=== PATIENT | male | born 1995 | race Caucasian/White ===

== ENCOUNTER 2020-09-03 12:58 | Inpatient (IN) | payer SELFPAY ==
[2020-09-03 13:07] VITALS: BP 112/76; PULSE 73; RESP 15; TEMP 36.7; O2SAT 100; BMI 20.5
--- NOTE | 2020-09-03 13:19 | ED_ITS ---
HPI - Psych General: Chief Complaint: Psychiatric Symptoms Stated Complaint: SI Time Seen by Provider: 09/03/20 13:05 History of Present Illness: HPI Narrative: 24-year-old male presents with suicidal ideation. Patient reports that he has had suicidal thoughts for quite a while. Patient reports being on for least a year. Patient admits that he gets worse with substance abuse. Patient states that sometimes he feels like he wants to hurt people. Patient mom reports that he get violent. Patient reports that he needs help and does not want to elaborate because it will make him cry. Patient feels that he needs a be hospitalized to help with his current condition. Associated symptoms: Reports depression, homicidal ideation and suicidal ideation Review of Systems Const: Denies: fever(s) or chills Eyes: Denies: change in vision ENMT: Denies: throat pain Card: Denies: chest pain or palpitations Resp: Denies: dyspnea or productive cough GI: Denies: abdominal pain, nausea or vomiting : Denies: flank pain Musc: Denies: neck pain or back pain Skin/Breast: Denies: rash Neuro: Denies: headache(s) Psych: Reports: depression, hopelessness, suicidal ideation and homicidal ideation PFS ED PFSH: Social History Smoking and tobacco status: current every day smoker cigarettes Packs smoked per day: 0.25 Alcohol intake: current Alcohol intake frequency: few times a week Substance/Drug Use: current Substance/Drug use frequency: daily Substance/Drug use type: Marijuana, Amphetamines and Methamphetamine Physical Exam Const: COMMON NORMALS: no acute distress, patient oriented x3 and healthy appearing HENMT: COMMON NORMALS: normocephalic and atraumatic HEAD & SCALP: normocephalic and atraumatic Eye: GENERAL EYE: appearance normal, both eyes and all related structures Neck/C-Spine: COMMON NORMALS: full ROM GENERAL: Yes normal visual inspection Resp: COMMON NORMALS: normal respiratory effort, No use of accessory muscles and clear to auscultation bilaterally AUSCULTATION: clear to auscultation bilaterally Cardio: COMMON NORMALS: regular rate and regular rhythm RATE: regular rate RHYTHM: regular rhythm GI: COMMON NORMALS: Normal to inspection, nondistended, normoactive bowel sounds present Extremity: COMMON NORMALS: normal to inspection and full ROM Neuro: COMMON NORMALS: patient oriented x3, moves all extremities and no focal motor deficits Psych: COMMON NORMALS: mental status grossly normal and Normal thought process present THOUGHT PROCESS: Normal thought process present Skin: COMMON NORMALS: no rashes or lesions noted GENERAL SKIN EXAM: no rashes or lesions noted Course Vital Signs: Vital signs: Vital Signs Temperature 97.9 F 09/03/20 16:00 Pulse Rate 63 09/03/20 16:00 Respiratory Rate 17 09/03/20 16:00 Blood Pressure 111/56 09/03/20 16:00 Pulse Oximetry 96 09/03/20 16:00 MDM - Psych MDM Narrative: Medical decision making narrative: Patient to be admitted for inpatient psychiatry treatment. Patient is voluntary and stable. Lab Data: Attestation: I reviewed the patient's lab results. Labs: Lab Results 09/03/20 09/03/20 09/03/20 Range/Units 13:20 13:20 13:55 WBC 6.3 (4.0-10.0) 10^3/ uL RBC 3.94 L (4.1-5.3) 10^6/u L Hgb 12.1 (11.7-16.6) g/dL Hct 36.4 L (42.0-52.0) % MCV 92.4 (80-94) fL MCH 30.7 (28.0-34.0) pg MCHC 33.2 (30.0-36.0) g/dL RDW 12.7 (12.1-15.1) % Plt Count 149 (130-400) 10^3/c mm MPV 10.3 (7.4-10.4) fL Neut % (Auto) 58.9 % Lymph % (Auto) 29.2 % [place] % (Auto) 8.5 % Eos % (Auto) 2.2 % Baso % (Auto) 0.6 % Neut # (Auto) 3.73 (1.8-7.7) 10^3/u L Lymph # (Auto) 1.9 (0.8-4.8) 10^3/u L [place] # (Auto) 0.5 (0.2-0.9) 10^3/u L Eos # (Auto) 0.1 (0.0-0.8) 10^3/u L Baso # (Auto) 0.0 (0.0-0.1) 10^3/u L Nucleated RBC % (a uto) 0 % Nucleated RBCs # 0.0 /100WBC Sodium 141 (136-145) mmol/L Potassium 4.1 (3.5-5.1) mmol/L Chloride 106 (98-107) mmol/L Carbon Dioxide 26 (22-29) mmol/L Anion Gap 13.1 (5-19) BUN 6 (6-20) mg/dL Creatinine 0.7 (0.7-1.2) mg/dL GFR Calculation 139.8 H (90-130) mL/min Glucose 95 (65-115) mg/dL Calculated Osmolal ity 289 (285-295) mOsm/k g Calcium 8.6 (8.5-10.5) mg/dL Total Bilirubin 0.2 (0.15-1.2) mg/dL AST 13 (0-40) U/L ALT 11 (0-41) U/L Alkaline Phosphata se 66 (40-130) IU/L Total Protein 6.3 L (6.6-8.7) g/dL Albumin 4.1 (3.5-5.2) g/dL Globulin 2.2 (1.3-4.6) g/dL Urine Color Straw (Yellow) Urine Appearance Clear (CLEAR) Urine pH 5 (5-7) Ur Specific Gravit y 1.010 (1.005-1.030) Urine Protein Neg (Negative) Urine Glucose (UA) Norm (Normal) Urine Ketones Negative (Negative) Urine Blood Neg (Negative) Urine Nitrate Negative (Negative) Urine Bilirubin Neg (Negative) Urine Urobilinogen Norm (Negative) mg/dL Ur Leukocyte Marie ase Negative (Negative) Salicylates < 0.3 L (3-10) mg/dL Urine Opiates Scre en (Negative) ng/mL Acetaminophen < 5.0 L (10-30) ug/mL Ur Barbiturates Sc reen (Negative) ng/mL Ur Phencyclidine S crn (Negative) ng/mL Ur Amphetamines Sc reen (Negative) ng/mL U Benzodiazepines Scrn (Negative) ng/mL Urine Cocaine Scre en (Negative) ng/mL U Marijuana (THC) Screen (Negative) ng/mL Ethyl Alcohol < 10 (0-10) mg/dL 09/03/20 Range/Units 13:55 WBC (4.0-10.0) 10^3/ uL RBC (4.1-5.3) 10^6/u L Hgb (11.7-16.6) g/dL Hct (42.0-52.0) % MCV (80-94) fL MCH (28.0-34.0) pg MCHC (30.0-36.0) g/dL RDW (12.1-15.1) % Plt Count (130-400) 10^3/c mm MPV (7.4-10.4) fL Neut % (Auto) % Lymph % (Auto) % [place] % (Auto) % Eos % (Auto) % Baso % (Auto) % Neut # (Auto) (1.8-7.7) 10^3/u L Lymph # (Auto) (0.8-4.8) 10^3/u L [place] # (Auto) (0.2-0.9) 10^3/u L Eos # (Auto) (0.0-0.8) 10^3/u L Baso # (Auto) (0.0-0.1) 10^3/u L Nucleated RBC % (a uto) % Nucleated RBCs # /100WBC Sodium (136-145) mmol/L Potassium (3.5-5.1) mmol/L Chloride (98-107) mmol/L Carbon Dioxide (22-29) mmol/L Anion Gap (5-19) BUN (6-20) mg/dL Creatinine (0.7-1.2) mg/dL GFR Calculation (90-130) mL/min Glucose (65-115) mg/dL Calculated Osmolal ity (285-295) mOsm/k g Calcium (8.5-10.5) mg/dL Total Bilirubin (0.15-1.2) mg/dL AST (0-40) U/L ALT (0-41) U/L Alkaline Phosphata se (40-130) IU/L Total Protein (6.6-8.7) g/dL Albumin (3.5-5.2) g/dL Globulin (1.3-4.6) g/dL Urine Color (Yellow) Urine Appearance (CLEAR) Urine pH (5-7) Ur Specific Gravit y (1.005-1.030) Urine Protein (Negative) Urine Glucose (UA) (Normal) Urine Ketones (Negative) Urine Blood (Negative) Urine Nitrate (Negative) Urine Bilirubin (Negative) Urine Urobilinogen (Negative) mg/dL Ur Leukocyte Marie ase (Negative) Salicylates (3-10) mg/dL Urine Opiates Scre en Negative (Negative) ng/mL Acetaminophen (10-30) ug/mL Ur Barbiturates Sc reen Negative (Negative) ng/mL Ur Phencyclidine S crn Negative (Negative) ng/mL Ur Amphetamines Sc reen Negative (Negative) ng/mL U Benzodiazepines Scrn Negative (Negative) ng/mL Urine Cocaine Scre en Negative (Negative) ng/mL U Marijuana (THC) Screen Positive H (Negative) ng/mL Ethyl Alcohol (0-10) mg/dL Discharge Plan Discharge Patient Disposition: Admitted As Inpatient Admit Provider: Dakota Beasley Clinical Impression: Suicidal ideation Depression Qualifiers: Depression Type: unspecified Qualified Code(s): F32.9 - Major depressive disorder, single episode, unspecified Condition: Stable Discharge Diet: Usual diet Discharge Activity: Resume usual activity Coding Level of Care Code ED Decision Analyst for Monalisa Fwd Exam Comprehensive
[2020-09-03 13:35] LABS: Basophils % 0.6 %; Eosinophils # 0.1 10^3/uL (0.0-0.8); Eosinophils % 2.2 %; Hematocrit 36.4 % (42.0-52.0); Hemoglobin 12.1 g/dL (11.7-16.6); Lymphocytes # 1.9 10^3/uL (0.8-4.8); Lymphocytes % 29.2 %; Mean Corpuscular HGB Conc 33.2 g/dL (30.0-36.0); Mean Corpuscular Hemoglobin 30.7 pg (28.0-34.0); Mean Corpuscular Volume 92.4 fL (80-94); Mean Platelet Volume 10.3 fL (7.4-10.4); Monocytes # 0.5 10^3/uL (0.2-0.9); Monocytes % 8.5 %; Neutrophils # 3.73 10^3/uL (1.8-7.7); Neutrophils % 58.9 %; Nucleated Red Blood Cells % 0 %; Platelet Count 149 10^3/cmm (130-400); Red Blood Count 3.94 10^6/uL (4.1-5.3); Red Cell Distribution Width 12.7 % (12.1-15.1); White Blood Count 6.3 10^3/uL (4.0-10.0)
[2020-09-03 13:51] LABS: Alanine Aminotransferase 11 U/L (0-41); Albumin Level 4.1 g/dL (3.5-5.2); Alkaline Phosphatase 66 IU/L (40-130); Anion Gap 13.1 (5-19); Aspartate Amino Transferase 13 U/L (0-40); Blood Urea Nitrogen 6 mg/dL (6-20); Calcium 8.6 mg/dL (8.5-10.5); Carbon Dioxide 26 mmol/L (22-29); Chloride 106 mmol/L (98-107); Creatinine Clr Calc Pharmacy 152.1325; Globulin 2.2 g/dL (1.3-4.6); Glomerular Filtration Rate 139.8 mL/min (90-130); Glucose 95 mg/dL (65-115); Osmolality Calculated 289 mOsm/kg (285-295); Potassium 4.1 mmol/L (3.5-5.1); Sodium 141 mmol/L (136-145); Total Bilirubin 0.2 mg/dL (0.15-1.2); Total Protein 6.3 g/dL (6.6-8.7)
[2020-09-03 14:00] LABS: Add Urine Microscopic? NO; Charge for UA Resulting for Rev
[2020-09-03 14:05] LABS: Acetaminophen < 5.0 ug/mL (10-30); Salicylate < 0.3 mg/dL (3-10)
[2020-09-03 14:05] LABS: Bilirubin Urine Neg (Negative); Blood Urine Neg (Negative); Glucose Urine UA Norm (Normal); Ketones Urine Negative (Negative); Leukocyte Esterase Urine Negative (Negative); Nitrate Urine Negative (Negative); Protein Urine Neg (Negative); Urine Appearance Clear (CLEAR); Urine Color Straw (Yellow); Urobilinogen Urine Norm (Negative); pH Urine 5 (5-7)
[2020-09-03 14:39] LABS: Amphetamines Screen Urine Negative (Negative); Barbiturates Screen Urine Negative (Negative); Benzodiazepines Screen Urine Negative (Negative); Cocaine Screen Urine Negative (Negative); Opiate Screen Urine Negative (Negative); PCP Screen Urine Negative (Negative); THC Screen Urine Positive (Negative)
--- NOTE | 2020-09-03 15:29 | PC.NURSE ---
pt report called to Bella TODD in SBAR format.
[2020-09-03 15:40] LABS: Alcohol Level < 10 mg/dL (0-10)
[2020-09-03 16:00] VITALS: BP 111/56; PULSE 63; RESP 17; TEMP 36.6; O2SAT 96
[2020-09-03 16:38] VITALS: RESP 17
[2020-09-03] MEDS: nicotine 2 mg Gum BUCCAL (18:30)
[2020-09-03 19:53] VITALS: BP 112/67; PULSE 68; RESP 15; TEMP 36.9; O2SAT 98
[2020-09-04 06:00] VITALS: BP 105/69; PULSE 74; RESP 18; TEMP 36.8; O2SAT 98
[2020-09-04] MEDS: nicotine 2 mg Gum BUCCAL ×2 (10:38→18:32)
--- NOTE | 2020-09-04 12:54 | PM.NHP ---
Providers/Chief Complaint Admitting Physician: Dakota Beasley DO Chief Complaint: SI HPI NPU History of Present Illness Jan Drummond is a 24 year old male who presented to the emergency department with the following report: Chief Complaint: Psychiatric Symptoms Stated Complaint: SI Time Seen by Provider: 09/03/20 13:05 History of Present Illness: HPI Narrative: 24-year-old male presents with suicidal ideation. Patient reports that he has had suicidal thoughts for quite a while. Patient reports being on for least a year. Patient admits that he gets worse with substance abuse. Patient states that sometimes he feels like he wants to hurt people. Patient mom reports that he get violent. Patient reports that he needs help and does not want to elaborate because it will make him cry. Patient feels that he needs a be hospitalized to help with his current condition. Associated symptoms: Reports depression, homicidal ideation and suicidal ideation. He was admitted to the neuropsychiatric unit for definitive treatment of those issues. He presents today reporting he is never had psychiatric treatment, he is never been hospitalized or had any other psychiatric medications. He denies any suicide attempts but does endorse suicidal thoughts that have been problematic recently endorses having depression feelings of helplessness and hopelessness and worthlessness. He reports smoking cigarettes were a pack will last him 2 to 3 days. Reports being alcohol occasionally, marijuana is smoked daily, he denies using cocaine but reports opiate use occasionally and methamphetamine use sometimes daily. When asked about rehab he reports not yet. He denies ever having a DUI. He was very evasive in general with answers to the questions often being idle no partially because he seemed to be in withdrawal or intoxicated and partially because he was trying to stay awake. He does report it is possible that some of his depression results from a break-up from earlier this year. We discussed the risks, benefits and alternatives of a trial of Prozac and he understood and agreed proceed as documented in his note. Psychiatric history: As above. Substance abuse history: As above. Family history: He denies significant history about family mental health or addiction issues because he was adopted but then he later identified that he was adopted within his family. He reports addiction issues on both sides of the family and he denies knowing about any suicide attempts or completions. Developmental history: He denies knowing about any issues with his mom's or and delivery with him. He did learn to walk and talk and met developmental milestones on time. He reports that he did struggle with speech and possible learning issues as far as language being slowed. Psychosocial history: He reports that his mom and dad were together when he was born but that he was adopted by his dad's brother and mom's sister reporting that he came from a situation where her brother is sisters or something like that. He reports he was adopted very young and he believes he has 1 full sibling and possibly some half siblings somewhere but he is unsure he reports that his childhood was fine and he denies any emotional physical or sexual abuse he denies he was ever taken out of the home but he did report that he was a challenging child and got in trouble a lot. He mated to the 12 grade but ultimately got his HSE. He is a heterosexual and he is not sure how long his longest relationship was maybe a year. He is 1 time and once, he is unsure if he has any children he reports he has 1 child who will be 1 years old on his birthday but he is to get a paternity test, is never been in the . He reports his longest employment was 11 months at a place that makes [employer]. He currently lives in a camper at home by his mother. Legal history: He reports that he was in juvenile intermediate for 7 months we was 15 and has been in adult long-term a lot. Longest time adult long-term was 1-1/2 years. Medical history: Denied. Please see ED note for full details. Meds NPU Home Medications Medication Instructions Recorded Confirmed Last Taken Type No Known Home Medications 09/03/20 09/03/20 Unknown History Allergies Allergy/AdvReac Type Severity Reaction Status Date / Time No Known Allergies Allergy Verified 09/03/20 14:07 PFSH NPU PFSH: Social History Smoking and tobacco status: current every day smoker cigarettes Packs smoked per day: 0.25 Alcohol intake: current Alcohol intake frequency: few times a week Substance/Drug Use: current Substance/Drug use frequency: daily Substance/Drug use type: Marijuana, Amphetamines and Methamphetamine Mental Status Exam MSE Comments: This is a slender white male in hospital scrubs with adequate grooming and limited eye contact. His pupils appeared suggestive of possible opiate use. No abnormal movements except for psychomotor retardation. Semicooperative with exam in mild distress. He department with significant pauses secondary to dozing off. Mood described as tired and depressed, affect congruent. Thought process organized. Thought content: Patient denied suicidal or homicidal ideation, there are no delusions reported or noted, he denied any auditory or visual hallucinations. Attention and concentration were intact and memory was limited but none were formally tested. He is alert and oriented x3. Insight and judgment are limited and impulse control is impaired. Vitals/I&O/Wt Last Vital Signs Temp 98.2 F 09/04/20 06:00 Pulse 74 09/04/20 06:00 Resp 18 09/04/20 06:00 BP 105/69 09/04/20 06:00 Pulse Ox 98 09/04/20 06:00 Weight last 48 hrs Weight 61.235 kg Data NPU : 09/03/20 13:20 09/03/20 13:20 A&P Assessment and plan (1) Cannabis abuse: Status: Acute (2) Methamphetamine abuse: Status: Acute (3) Opiate abuse, episodic: Status: Acute (4) Suicidal ideation: Status: Acute (5) Depression: Status: Acute Qualifiers: Depression Type: unspecified Qualified Code(s): F32.9 - Major depressive disorder, single episode, unspecified Additional A&P Information This is a 24-year-old white male with a long history of addiction and legal issues and emotional issues likely related to his adoption who presents with significant depression and active use with a nidus of recent relationship losses open to a trial of medication. 1. Continue current medication. Start Prozac 20 mg p.o. every morning. 2. Continue every 15 minute checks for safety. 3. Encourage individual, group and milieu therapies. 4. Encourage sober living treatment after discharge at the highest level of care to which he is willing to commit. Involuntary Hold Information 96 Hour Hold: 96 Hour Involuntary Admission: No Attestations NPU Medical Necessity Statement*: Inpatient hospitalization is medically necessary and the clinically appropriate intervention at this time. We will monitor medications and make changes as indicated. Patient will be in the hospital for over two midnights. Likely length of stay 3 to 5 days. Coding Level of Care Code Acute Medical Education Coordinator for Monalisa Renee Diagnoses Cannabis abuse F12.10 Methamphetamine abuse F15.10 Opiate abuse, episodic F11.10 Suicidal ideation R45.851 Depression F32.9 Depression Type: unspecified
[2020-09-04 14:00] VITALS: BP 106/69; PULSE 60; RESP 20; TEMP 36.8; O2SAT 99
[2020-09-04] MEDS: fluoxetine 20 mg Capsule PO (15:24)
[2020-09-04] MEDS: trazodone 50 mg Tablet PO (21:11)
[2020-09-04 22:00] VITALS: BP 116/75; PULSE 95; RESP 18; TEMP 36.7; O2SAT 97
--- NOTE | 2020-09-05 03:26 | PC.NURSE ---
PRN Administered Trazadone 50mg for a sleep aid @ 21:11 reassessed pt at 21:45 pt is asleep in bed snoring
[2020-09-05 06:00] VITALS: BP 102/66; PULSE 73; RESP 17; TEMP 37; O2SAT 98
[2020-09-05] MEDS: fluoxetine 20 mg Capsule PO (08:13)
[2020-09-05] MEDS: nicotine 2 mg Gum BUCCAL (13:59)
[2020-09-05 14:00] VITALS: BP 123/78; PULSE 83; RESP 18; TEMP 36.6; O2SAT 98
--- NOTE | 2020-09-05 15:43 | PM.NPN ---
Subjective NPU Subjective: Interval history: Jan presents today reporting that he is doing better and hoping to be discharged as soon as reasonable so that he can go and get present for his daughter for her birthday constitution party that he believes will be this weekend. He reports that he has reached out to family and friends and has a good support system and is planning on not letting them down and not letting himself down in his road to recovery and being a good father. He reports he is tolerating the Prozac fine. He denies any active cravings and reports he is eating and sleeping better and feeling better overall. Mental Status Exam MSE Comments: This is a slender white male in hospital scrubs with appropriate grooming and eye contact. No abnormal movements except for mild psychomotor retardation. Cooperative with exam in no acute distress. Speech is decreased rate and normal volume. Mood described as a little better, affect congruent. Thought process organized. Thought content: Patient denied suicidal or homicidal ideation, there are no delusions reported or noted, he denied any auditory or visual hallucinations. Attention and concentration were intact and memory was improving but none were formally tested. He is alert and oriented x3. Insight and judgment are limited and impulse control limited. Vitals/I&O/Wt Last Vital Signs Temp 98 F 09/05/20 14:00 Pulse 83 09/05/20 14:00 Resp 18 09/05/20 14:00 BP 123/78 09/05/20 14:00 Pulse Ox 98 09/05/20 14:00 Data NPU : 09/03/20 13:20 09/03/20 13:20 A&P Additional A&P Information (1) Cannabis abuse: (2) Methamphetamine abuse: (3) Opiate abuse, episodic: (4) Suicidal ideation: (5) Depression: Additional A&P Information This is a 24-year-old white male with a long history of addiction and legal issues and emotional issues likely related to his adoption who presents with significant depression and active use with a nidus of recent relationship losses open to a trial of medication. 1. Continue current medication. 2. Continue every 15 minute checks for safety. 3. Encourage individual, group and milieu therapies. 4. Encourage sober living treatment after discharge at the highest level of care to which he is willing to commit. Involuntary Hold Information 96 Hour Hold: 96 Hour Involuntary Admission: No Attestations NPU Medical Necessity Statement*: Inpatient hospitalization is medically necessary and the clinically appropriate intervention at this time. We will monitor medications and make changes as indicated. Likely length of stay 1-3 days. Coding Level of Care Code Acute Hyperbaric Technologist for Monalisa Renee
--- NOTE | 2020-09-05 17:39 | PC.RESP ---
Smoking Cessation information sent to patient.
[2020-09-05 21:49] VITALS: BP 98/63; PULSE 69; RESP 20; TEMP 37; O2SAT 97
[2020-09-06 05:55] VITALS: BP 97/59; PULSE 71; RESP 20; TEMP 36.7; O2SAT 97
[2020-09-06] MEDS: fluoxetine 20 mg Capsule PO (08:10)
[2020-09-06] MEDS: nicotine 21 mg Patch 1 PATCH TRANSDERMA (10:11)
--- NOTE | 2020-09-06 11:28 | PM.NDC ---
Diagnoses at Discharge Discharge Diagnosis (1) Cannabis abuse: Status: Acute (2) Methamphetamine abuse: Status: Acute (3) Opiate abuse, episodic: Status: Acute (4) Suicidal ideation: Status: Resolved (5) Depression: Status: Acute Qualifiers: Depression Type: unspecified Qualified Code(s): F32.9 - Major depressive disorder, single episode, unspecified Reason for Visit Reason for Visit: SI Brief History: [address] [id number] & Physical ReportSigned Patient: Tom DrummondeMR#: [id number]: [id number]#:[id number]/Sex: 24 / MADM Date: 09/03/20Loc: [facility] Room/Bed: [address] [place] [address] Date: 09/04/20Attending Dr: Rick Gottlieb MD Report Number: [id number] Providers/Chief Complaint Admitting Physician: Dakota Beasley DO Chief Complaint: SI HPI NPU History of Present Illness Jan Drummond is a 24 year old male who presented to the emergency department with the following report: Chief Complaint: Psychiatric Symptoms Stated Complaint: SI Time Seen by Provider: 09/03/20 13:05 History of Present Illness: HPI Narrative: 24-year-old male presents with suicidal ideation. Patient reports that he has had suicidal thoughts for quite a while. Patient reports being on for least a year. Patient admits that he gets worse with substance abuse. Patient states that sometimes he feels like he wants to hurt people. Patient mom reports that he get violent. Patient reports that he needs help and does not want to elaborate because it will make him cry. Patient feels that he needs a be hospitalized to help with his current condition. Associated symptoms: Reports depression, homicidal ideation and suicidal ideation. He was admitted to the neuropsychiatric unit for definitive treatment of those issues. He presents today reporting he is never had psychiatric treatment, he is never been hospitalized or had any other psychiatric medications. He denies any suicide attempts but does endorse suicidal thoughts that have been problematic recently endorses having depression feelings of helplessness and hopelessness and worthlessness. He reports smoking cigarettes were a pack will last him 2 to 3 days. Reports being alcohol occasionally, marijuana is smoked daily, he denies using cocaine but reports opiate use occasionally and methamphetamine use sometimes daily. When asked about rehab he reports not yet. He denies ever having a DUI. He was very evasive in general with answers to the questions often being idle no partially because he seemed to be in withdrawal or intoxicated and partially because he was trying to stay awake. He does report it is possible that some of his depression results from a break-up from earlier this year. We discussed the risks, benefits and alternatives of a trial of Prozac and he understood and agreed proceed as documented in his note. Psychiatric history: As above. Substance abuse history: As above. Family history: He denies significant history about family mental health or addiction issues because he was adopted but then he later identified that he was adopted within his family. He reports addiction issues on both sides of the family and he denies knowing about any suicide attempts or completions. Developmental history: He denies knowing about any issues with his mom's or and delivery with him. He did learn to walk and talk and met developmental milestones on time. He reports that he did struggle with speech and possible learning issues as far as language being slowed. Psychosocial history: He reports that his mom and dad were together when he was born but that he was adopted by his dad's brother and mom's sister reporting that he came from a situation where her brother is sisters or something like that. He reports he was adopted very young and he believes he has 1 full sibling and possibly some half siblings somewhere but he is unsure he reports that his childhood was fine and he denies any emotional physical or sexual abuse he denies he was ever taken out of the home but he did report that he was a challenging child and got in trouble a lot. He mated to the 12 grade but ultimately got his HSE. He is a heterosexual and he is not sure how long his longest relationship was maybe a year. He is 1 time and once, he is unsure if he has any children he reports he has 1 child who will be 1 years old on his birthday but he is to get a paternity test, is never been in the . He reports his longest employment was 11 months at a place that makes [employer] He currently lives in a camper at home by his mother. Legal history: He reports that he [facility] [place] we was 15 and has been in adult alf a lot. Longest time adult alf was 1-1/2 years. Medical history: Denied. Please see ED note for full details. Hospital Course Hospital Course And he presented to the emergency department with concerns for depression, lethality and active addiction. He was admitted to the neuropsychiatric unit for definitive treatment of those issues. On the unit he quickly acclimated to the individual, group milieu therapies provided. He was started on Prozac 20 mg p.o. every morning and he had a positive response. He was able to contract for safety prior to discharge. During the hospitalization, patient had routine laboratory studies which were within normal limits except for few outliers. Additionally there was a general medical evaluation which was also within normal limits and revealed no new acute processes. Discharge Summary: At the time of discharge,he denied psychosis or lethality. Mood and anxiety were well managed. Patient endorsed a plan to avoid all drugs of abuse and follow-up with the aftercare recommendations of the treatment team. Patient was evaluated and deemed to be absent credible lethality, and had achieved the maximum benefit from an inpatient hospitalization, so was discharged. Involuntary Hold Information 96 Hour Hold: 96 Hour Involuntary Admission: No Mental Status Exam MSE Comments: This is a slender white male in hospital scrubs with appropriate grooming and eye contact. No abnormal movements except for mild psychomotor retardation. Cooperative with exam in no acute distress. Speech is decreased rate and normal volume. Mood described as a little better, affect congruent. Thought process organized. Thought content: Patient denied suicidal or homicidal ideation, there are no delusions reported or noted, he denied any auditory or visual hallucinations. Attention and concentration were intact and memory was improving but none were formally tested. He is alert and oriented x3. Insight and judgment are limited and impulse control limited. Discharge Data Vitals: Last Vital Signs Temp 98.1 F 09/06/20 05:55 Pulse 71 09/06/20 05:55 Resp 20 H 09/06/20 05:55 BP 97/59 09/06/20 05:55 Pulse Ox 97 09/06/20 05:55 Discharge Plan Discharge Patient Disposition: Home Condition: Stable Prescriptions: New fluoxetine 20 mg Capsule 20 mg PO DAILY 30 Days Qty: 30 RF: 1 Discharge Orders: Discharge Order (Routine); Ordered 09/06/20 Ordered By: Rick Gottlieb Referrals: [facility] [Outside] (Walk in 7:30 AM -3:00 PM) Discharge Diet: Usual diet and Regular Discharge Activity: Resume usual activity Patient Instructions: Olanzapine/Fluoxetine (By mouth), Opioid Safety Discharge Attestations NPU Time Spent in Discharge Care*: less than 30 min Specific Discharge Activities: Specific discharge activities: educating patient, discussing with director of casework department/social workers/dc planners, documenting/other paperwork and evaluating patient/reviewing data Coding Level of Care Code Acute [facility] DC note Diagnoses Cannabis abuse F12.10 Methamphetamine abuse F15.10 Opiate abuse, episodic F11.10 Suicidal ideation R45.851 Depression F32.9 Depression Type: unspecified
[2020-09-06 11:33] VITALS: BP 97/59; PULSE 71; RESP 20; TEMP 36.7; O2SAT 97
== END 2020-09-06 11:49 | disposition home or self-care (01) | DRG 881 ==
LOC: ER 15:05 → NP 09-04 09:45
PROVIDERS: Admitting Provider Psychiatry & Neurology Psychiatry; Emergency Provider Student in an Organized Health Care Education/Training Program; Visit Provider Psychiatry & Neurology Psychiatry
DX: F32.9 Major depressive disorder, single episode, unspecified (principal); R45.851 Suicidal ideations; F17.210 Nicotine dependence, cigarettes, uncomplicated; F12.10 Cannabis abuse, uncomplicated; F15.10 Other stimulant abuse, uncomplicated; F10.10 Alcohol abuse, uncomplicated; F11.10 Opioid abuse, uncomplicated
CPT/HCPCS: 80053; 80306; 80307; 81003; 85025; 99285

== ENCOUNTER 2020-10-13 12:24 | Inpatient (IN) | payer SELFPAY ==
[2020-10-13 12:33] VITALS: PULSE 83; RESP 20; TEMP 36.4; O2SAT 100; BMI 20.5
--- NOTE | 2020-10-13 12:57 | ED_ITS ---
HPI - Psych General: Chief Complaint: Psychiatric Symptoms Stated Complaint: SI Time Seen by Provider: 10/13/20 12:51 History of Present Illness: HPI Narrative: 25-year-old male presents to the emergency room with suicidal ideation and thoughts. States he would like to commit suicide but does not have a specific plan he states he is too scared to harm himself a lot of it stems from some relationship problems related to his drugs from about 6 months ago. He also smokes marijuana he wants to get a medical card but has not been able to yet. He thinks that the medical marijuana will help keep him from doing math. He was hospitalized a month ago for suic idal ideation. He is currently on Prozac. MD complaint: suicidal ideation and feels depressed Onset (ago): week(s) Duration: constant History of same: Yes Relieving factors: none Exacerbating factors: drug use Review of Systems Const: Denies: fever(s), chills, body aches, change in appetite, fatigue or malaise ENMT: Denies: throat pain, ear or mastoid pain, nasal discharge or nasal congestion Card: Denies: chest pain, edema, dyspnea on exertion or orthopnea Resp: Denies: dyspnea, productive cough or non-productive cough GI: Denies: abdominal pain, nausea, vomiting, hematemesis, coffee ground emesis, diarrhea, constipation, bloating, hematochezia or melena : Denies: flank pain, dysuria, urinary frequency or urinary urgency Skin/Breast: Denies: rash or pruritus PFS ED PFSH: Social History Smoking and tobacco status: current every day smoker cigarettes Packs smoked per day: 0.25 Alcohol intake: current Alcohol intake frequency: few times a week Physical Exam Const: COMMON NORMALS: no acute distress GENERAL APPEARANCE: cooperative and comfortable ORIENTATION/CONSCIOUSNESS: Yes awake, Yes oriented to person, Yes oriented to place and Yes oriented to time HENMT: COMMON NORMALS: normocephalic, atraumatic, hearing grossly normal bilaterally and external ears normal HEAD & SCALP: normocephalic and atraumatic EXTERNAL EAR: Yes external ears normal Neck/C-Spine: COMMON NORMALS: no JVD Resp: COMMON NORMALS: normal respiratory effort, No retractions, No use of accessory muscles and clear to auscultation bilaterally AUSCULTATION: clear to auscultation bilaterally Cardio: COMMON NORMALS: no JVD, regular rate, regular rhythm and No murmurs present (Cardio) RATE: regular rate RHYTHM: regular rhythm GI: COMMON NORMALS: Soft to palpation and No hepatosplenomegaly present AUSCULTATION: Yes normoactive bowel sounds PALPATION: Yes Soft to palpation, No Tenderness to palpation present (GI), No Guarding due to palpation present (GI) and Yes No hepatosplenomegaly present Extremity: COMMON NORMALS: normal to inspection, capillary refill normal, no clubbing, cyanosis or edema, no calf tenderness and no pedal edema Neuro: SENSORIUM/ORIENTATION: Yes oriented to person, Yes oriented to place and Yes oriented to time Skin: COMMON NORMALS: no rashes or lesions noted GENERAL SKIN EXAM: no rashes or lesions noted Course Vital Signs: Vital signs: Vital Signs Temperature 97.8 F 10/15/20 15:28 Pulse Rate 65 10/15/20 15:28 Respiratory Rate 18 10/15/20 15:28 Blood Pressure 106/70 10/15/20 15:28 Pulse Oximetry 99 10/15/20 15:28 MDM - Psych MDM Narrative: Medical decision making narrative: 25-year-old male with suicidal ideation discussed Dr. Gottlieb orders written will admit to psych. Lab Data: Labs: Lab Results 10/13/20 10/13/20 10/13/20 Range/Units 13:09 13:09 13:20 WBC 5.1 (4.0-10.0) 10^3/ uL RBC 4.22 (4.1-5.3) 10^6/u L Hgb 12.9 (11.7-16.6) g/dL Hct 38.8 L (42.0-52.0) % MCV 91.9 (80-94) fL MCH 30.6 (28.0-34.0) pg MCHC 33.2 (30.0-36.0) g/dL RDW 12.5 (12.1-15.1) % Plt Count 227 (130-400) 10^3/c mm MPV 10.4 (7.4-10.4) fL Neut % (Auto) 50.9 % Lymph % (Auto) 34.6 % Mellette % (Auto) 11.5 % Eos % (Auto) 2.2 % Baso % (Auto) 0.6 % Neut # (Auto) 2.60 (1.8-7.7) 10^3/u L Lymph # (Auto) 1.8 (0.8-4.8) 10^3/u L Mellette # (Auto) 0.6 (0.2-0.9) 10^3/u L Eos # (Auto) 0.1 (0.0-0.8) 10^3/u L Baso # (Auto) 0.0 (0.0-0.1) 10^3/u L Nucleated RBC % (a uto) 0 % Nucleated RBCs # 0.0 /100WBC Sodium (136-145) mmol/L Potassium (3.5-5.1) mmol/L Chloride (98-107) mmol/L Carbon Dioxide (22-29) mmol/L Anion Gap (5-19) BUN (6-20) mg/dL Creatinine (0.7-1.2) mg/dL GFR Calculation (90-130) mL/min Glucose (65-115) mg/dL Calculated Osmolal ity (285-295) mOsm/k g Calcium (8.5-10.5) mg/dL Total Bilirubin (0.15-1.2) mg/dL AST (0-40) U/L ALT (0-41) U/L Alkaline Phosphata se (40-130) IU/L Total Protein (6.6-8.7) g/dL Albumin (3.5-5.2) g/dL Globulin (1.3-4.6) g/dL Urine Color Yellow (Yellow) Urine Appearance Clear (CLEAR) Urine pH 5 (5-7) Ur Specific Gravit y 1.020 (1.005-1.030) Urine Protein Neg (Negative) Urine Glucose (UA) Norm (Normal) Urine Ketones Negative (Negative) Urine Blood Neg (Negative) Urine Nitrate Negative (Negative) Urine Bilirubin Neg (Negative) Urine Urobilinogen Norm (Negative) mg/dL Ur Leukocyte Marie ase Negative (Negative) Salicylates (3-10) mg/dL Urine Opiates Scre en Negative (Negative) ng/mL Acetaminophen (10-30) ug/mL Ur Barbiturates Sc reen Negative (Negative) ng/mL Ur Phencyclidine S crn Negative (Negative) ng/mL Ur Amphetamines Sc reen Positive H (Negative) ng/mL U Benzodiazepines Scrn Negative (Negative) ng/mL Urine Cocaine Scre en Negative (Negative) ng/mL U Marijuana (THC) Screen Positive H (Negative) ng/mL Ethyl Alcohol (0-10) mg/dL 10/13/20 10/13/20 Range/Units 13:20 13:20 WBC (4.0-10.0) 10^3/ uL RBC (4.1-5.3) 10^6/u L Hgb (11.7-16.6) g/dL Hct (42.0-52.0) % MCV (80-94) fL MCH (28.0-34.0) pg MCHC (30.0-36.0) g/dL RDW (12.1-15.1) % Plt Count (130-400) 10^3/c mm MPV (7.4-10.4) fL Neut % (Auto) % Lymph % (Auto) % Mellette % (Auto) % Eos % (Auto) % Baso % (Auto) % Neut # (Auto) (1.8-7.7) 10^3/u L Lymph # (Auto) (0.8-4.8) 10^3/u L Mellette # (Auto) (0.2-0.9) 10^3/u L Eos # (Auto) (0.0-0.8) 10^3/u L Baso # (Auto) (0.0-0.1) 10^3/u L Nucleated RBC % (a uto) % Nucleated RBCs # /100WBC Sodium 139 (136-145) mmol/L Potassium 4.6 (3.5-5.1) mmol/L Chloride 104 (98-107) mmol/L Carbon Dioxide 28 (22-29) mmol/L Anion Gap 11.6 (5-19) BUN 9 (6-20) mg/dL Creatinine 0.7 (0.7-1.2) mg/dL GFR Calculation 138.6 H (90-130) mL/min Glucose 75 (65-115) mg/dL Calculated Osmolal ity 285 (285-295) mOsm/k g Calcium 9.0 (8.5-10.5) mg/dL Total Bilirubin 0.4 (0.15-1.2) mg/dL AST 16 (0-40) U/L ALT 12 (0-41) U/L Alkaline Phosphata se 78 (40-130) IU/L Total Protein 6.5 L (6.6-8.7) g/dL Albumin 4.1 (3.5-5.2) g/dL Globulin 2.4 (1.3-4.6) g/dL Urine Color (Yellow) Urine Appearance (CLEAR) Urine pH (5-7) Ur Specific Gravit y (1.005-1.030) Urine Protein (Negative) Urine Glucose (UA) (Normal) Urine Ketones (Negative) Urine Blood (Negative) Urine Nitrate (Negative) Urine Bilirubin (Negative) Urine Urobilinogen (Negative) mg/dL Ur Leukocyte Marie ase (Negative) Salicylates < 0.3 L (3-10) mg/dL Urine Opiates Scre en (Negative) ng/mL Acetaminophen < 5.0 L (10-30) ug/mL Ur Barbiturates Sc reen (Negative) ng/mL Ur Phencyclidine S crn (Negative) ng/mL Ur Amphetamines Sc reen (Negative) ng/mL U Benzodiazepines Scrn (Negative) ng/mL Urine Cocaine Scre en (Negative) ng/mL U Marijuana (THC) Screen (Negative) ng/mL Ethyl Alcohol < 10 (0-10) mg/dL Discharge Plan Discharge Patient Disposition: Admitted As Inpatient Admit Provider: Rick Gottlieb Condition: Stable Coding Level of Care Code ED Unarmed Security Guard for [employer] Fwd Exam Comprehensive
[2020-10-13 13:24] LABS: Add Urine Microscopic? NO; Charge for UA Resulting for Rev
[2020-10-13 13:29] LABS: Bilirubin Urine Neg (Negative); Blood Urine Neg (Negative); Glucose Urine UA Norm (Normal); Ketones Urine Negative (Negative); Leukocyte Esterase Urine Negative (Negative); Nitrate Urine Negative (Negative); Protein Urine Neg (Negative); Urine Appearance Clear (CLEAR); Urine Color Yellow (Yellow); Urobilinogen Urine Norm (Negative); pH Urine 5 (5-7)
[2020-10-13 13:31] LABS: Basophils % 0.6 %; Eosinophils # 0.1 10^3/uL (0.0-0.8); Eosinophils % 2.2 %; Hematocrit 38.8 % (42.0-52.0); Hemoglobin 12.9 g/dL (11.7-16.6); Lymphocytes # 1.8 10^3/uL (0.8-4.8); Lymphocytes % 34.6 %; Mean Corpuscular HGB Conc 33.2 g/dL (30.0-36.0); Mean Corpuscular Hemoglobin 30.6 pg (28.0-34.0); Mean Corpuscular Volume 91.9 fL (80-94); Mean Platelet Volume 10.4 fL (7.4-10.4); Monocytes # 0.6 10^3/uL (0.2-0.9); Monocytes % 11.5 %; Neutrophils % 50.9 %; Nucleated Red Blood Cells % 0 %; Platelet Count 227 10^3/cmm (130-400); Red Blood Count 4.22 10^6/uL (4.1-5.3); Red Cell Distribution Width 12.5 % (12.1-15.1); White Blood Count 5.1 10^3/uL (4.0-10.0)
[2020-10-13 13:48] LABS: Alanine Aminotransferase 12 U/L (0-41); Albumin Level 4.1 g/dL (3.5-5.2); Alkaline Phosphatase 78 IU/L (40-130); Anion Gap 11.6 (5-19); Aspartate Amino Transferase 16 U/L (0-40); Blood Urea Nitrogen 9 mg/dL (6-20); Carbon Dioxide 28 mmol/L (22-29); Chloride 104 mmol/L (98-107); Creatinine Clr Calc Pharmacy 150.8322; Globulin 2.4 g/dL (1.3-4.6); Glomerular Filtration Rate 138.6 mL/min (90-130); Glucose 75 mg/dL (65-115); Osmolality Calculated 285 mOsm/kg (285-295); Potassium 4.6 mmol/L (3.5-5.1); Sodium 139 mmol/L (136-145); Total Bilirubin 0.4 mg/dL (0.15-1.2); Total Protein 6.5 g/dL (6.6-8.7)
[2020-10-13 13:57] LABS: Acetaminophen < 5.0 ug/mL (10-30); Salicylate < 0.3 mg/dL (3-10)
[2020-10-13 15:18] VITALS: BP 108/74; PULSE 62; RESP 18; TEMP 36.8; O2SAT 97
--- NOTE | 2020-10-13 15:32 | PC.NURSE ---
report called room not ready
[2020-10-13 15:57] VITALS: BP 121/76; PULSE 61; RESP 17; TEMP 36.3; O2SAT 99
[2020-10-13 17:27] LABS: Amphetamines Screen Urine Positive (Negative); Barbiturates Screen Urine Negative (Negative); Benzodiazepines Screen Urine Negative (Negative); Cocaine Screen Urine Negative (Negative); Opiate Screen Urine Negative (Negative); PCP Screen Urine Negative (Negative); THC Screen Urine Positive (Negative)
[2020-10-13] MEDS: nicotine 2 mg Gum BUCCAL (17:52)
[2020-10-13 20:42] LABS: Alcohol Level < 10 mg/dL (0-10)
[2020-10-13 22:00] VITALS: BP 112/65; PULSE 76; RESP 16; TEMP 36.6; O2SAT 99
[2020-10-14 06:00] VITALS: BP 116/76; PULSE 75; RESP 15; TEMP 37; O2SAT 100
--- NOTE | 2020-10-14 06:08 | PM.NHP ---
Providers/Chief Complaint Admitting Physician: Rick Gottlieb MD Chief Complaint: SI HPI NPU History of Present Illness Jan Drummond is a 25 year old male who presented to the emergency department with the following report: Chief Complaint: Psychiatric Symptoms Stated Complaint: SI Time Seen by Provider: 10/13/20 12:51 History of Present Illness: HPI Narrative: 25-year-old male presents to the emergency room with suicidal ideation and thoughts. States he would like to commit suicide but does not have a specific plan he states he is too scared to harm himself a lot of it stems from some relationship problems related to his drugs from about 6 months ago. He also smokes marijuana he wants to get a medical card but has not been able to yet. He thinks that the medical marijuana will help keep him from doing math. He was hospitalized a month ago for suicidal ideation. He is currently on Prozac. complaint: suicidal ideation and feels depressed Onset (ago): week(s) Duration: constant History of same: Yes Relieving factors: none Exacerbating factors: drug use. He was admitted to the neuropsychiatric unit for definitive treatment of those issues. He presents today reporting that after the discharge last time he went to reconnect with his and his daughter's mother would not get out of the way but not letting him present get an he has not seen his daughter for a long time and that really messes with him. He is now taking his medication which had been effective and got back involved with his addiction. He denies substantive changes since we saw him in August and is hopeful to get back on track with his mental health and recovery treatment. We discussed the risks benefits and alternatives of restarting his Prozac and he understood and agreed to proceed as is documented in this note. An excerpt from his last hospitalization is included below given there were limited changes. Per his 09/04/2020 [facility] inpatient psychiatric evaluation: History of Present Illness Jan Drummond is a 24 year old male who presented to the emergency department with the following report: Chief Complaint: Psychiatric Symptoms Stated Complaint: SI Time Seen by Provider: 09/03/20 13:05 History of Present Illness: HPI Narrative: 24-year-old male presents with suicidal ideation. Patient reports that he has had suicidal thoughts for quite a while. Patient reports being on for least a year. Patient admits that he gets worse with substance abuse. Patient states that sometimes he feels like he wants to hurt people. Patient mom reports that he get violent. Patient reports that he needs help and does not want to elaborate because it will make him cry. Patient feels that he needs a be hospitalized to help with his current condition. Associated symptoms: Reports depression, homicidal ideation and suicidal ideation. He was admitted to the neuropsychiatric unit for definitive treatment of those issues. He presents today reporting he is never had psychiatric treatment, he is never been hospitalized or had any other psychiatric medications. He denies any suicide attempts but does endorse suicidal thoughts that have been problematic recently endorses having depression feelings of helplessness and hopelessness and worthlessness. He reports smoking cigarettes were a pack will last him 2 to 3 days. Reports being alcohol occasionally, marijuana is smoked daily, he denies using cocaine but reports opiate use occasionally and methamphetamine use sometimes daily. When asked about rehab he reports not yet. He denies ever having a DUI. He was very evasive in general with answers to the questions often being idle no partially because he seemed to be in withdrawal or intoxicated and partially because he was trying to stay awake. He does report it is possible that some of his depression results from a break-up from earlier this year. We discussed the risks, benefits and alternatives of a trial of Prozac and he understood and agreed proceed as documented in his note. Psychiatric history: As above. Substance abuse history: As above. Family history: He denies significant history about family mental health or addiction issues because he was adopted but then he later identified that he was adopted within his family. He reports addiction issues on both sides of the family and he denies knowing about any suicide attempts or completions. Developmental history: He denies knowing about any issues with his mom's or and delivery with him. He did learn to walk and talk and met developmental milestones on time. He reports that he did struggle with speech and possible learning issues as far as language being slowed. Psychosocial history: He reports that his mom and dad were together when he was born but that he was adopted by his dad's brother and mom's sister reporting that he came from a situation where her brother is sisters or something like that. He reports he was adopted very young and he believes he has 1 full sibling and possibly some half siblings somewhere but he is unsure he reports that his childhood was fine and he denies any emotional physical or sexual abuse he denies he was ever taken out of the home but he did report that he was a challenging child and got in trouble a lot. He mated to the 12 grade but ultimately got his HSE. He is a heterosexual and he is not sure how long his longest relationship was maybe a year. He is 1 time and once, he is unsure if he has any children he reports he has 1 child who will be 1 years old on his birthday but he is to get a paternity test, is never been in the . He reports his longest employment was 11 months at a place that makes [employer]. He currently lives in a camper at home by his mother. Legal history: He reports that he [facility] [place] [facility] we was 15 and has been in adult group home a lot. Longest time adult group home was 1-1/2 years. Medical history: Denied. Please see ED note for full details. Meds NPU Home Medications Medication Instructions Recorded Confirmed Last Taken Type fluoxetine 20 mg PO DAILY 30 Days #30 cap 09/06/20 10/13/20 Unknown Rx Allergies Allergy/AdvReac Type Severity Reaction Status Date / Time No Known Allergies Allergy Verified 09/03/20 14:07 PFS NPU PFSH: Social History Smoking and tobacco status: current every day smoker cigarettes Packs smoked per day: 0.25 Alcohol intake: current Alcohol intake frequency: few times a week Mental Status Exam MSE Comments: This is a slender white male in hospital scrubs with adequate grooming and eye contact. No abnormal movements except for mild psychomotor retardation. Cooperative with exam in mild distress. Speech is normal rate and volume. Mood described as depressed, affect congruent. Thought process organized. Thought content: Patient denied suicidal or homicidal ideation, there are no delusions reported or noted, he denied any auditory or visual hallucinations. Attention and concentration were intact and memory was reliable, but none were formally tested. He is alert and oriented x3. Insight and judgment are limited and impulse control is impaired. Vitals/I&O/Wt Last Vital Signs Temp 98.6 F 10/14/20 14:00 Pulse 75 10/14/20 14:00 Resp 15 10/14/20 14:00 BP 116/76 10/14/20 14:00 Pulse Ox 100 10/14/20 14:00 Weight last 48 hrs Weight 61.235 kg Data NPU : 10/13/20 13:20 10/13/20 13:20 A&P Assessment and plan (1) Opiate abuse, episodic: Status: Acute (2) Methamphetamine abuse: Status: Acute (3) Cannabis abuse: Status: Acute (4) Depression: Status: Acute Qualifiers: Depression Type: unspecified Qualified Code(s): F32.9 - Major depressive disorder, single episode, unspecified Additional A&P Information This is a 25-year-old white male with a long history of childhood trauma/neglect, addiction and depression who presents off of medication and open to getting back on track with his treatment. 1. Continue current medication. Start Prozac 20 mg p.o. every morning. 2. Continue every 15 minute checks for safety. 3. Encourage individual, group and milieu therapies. 4. Encourage sober living treatment after discharge at the highest level of care to which he is willing to commit. Involuntary Hold Information 96 Hour Hold: 96 Hour Involuntary Admission: No Attestations NPU Medical Necessity Statement*: Inpatient hospitalization is medically necessary and the clinically appropriate intervention at this time. We will monitor medications and make changes as indicated. Patient will be in the hospital for over two midnights. Likely length of stay 3 to 5 days. Coding Level of Care Code Acute [employer] Helper for Monalisa Renee Diagnoses Opiate abuse, episodic F11.10 Methamphetamine abuse F15.10 Cannabis abuse F12.10 Depression F32.9 Depression Type: unspecified
[2020-10-14] MEDS: nicotine 2 mg Gum BUCCAL (13:14)
[2020-10-14 14:00] VITALS: BP 102/62; PULSE 84; RESP 18; TEMP 36.6; O2SAT 99
[2020-10-14 20:33] VITALS: BP 110/68; PULSE 75; RESP 14; TEMP 36.4; O2SAT 99
[2020-10-15 06:00] VITALS: BP 106/70; PULSE 65; RESP 18; TEMP 36.6; O2SAT 99
[2020-10-15] MEDS: nicotine 2 mg Gum BUCCAL (12:36)
--- NOTE | 2020-10-15 15:16 | PM.NDC ---
Diagnoses at Discharge Discharge Diagnosis (1) Opiate abuse, episodic: Status: Acute (2) Methamphetamine abuse: Status: Acute (3) Cannabis abuse: Status: Acute (4) Depression: Status: Acute Qualifiers: Depression Type: unspecified Qualified Code(s): F32.9 - Major depressive disorder, single episode, unspecified Reason for Visit Reason for Visit: SI Brief History: History of Present Illness Jan Drummond is a 25 year old male who presented to the emergency department with the following report: Chief Complaint: Psychiatric Symptoms Stated Complaint: SI Time Seen by Provider: 10/13/20 12:51 History of Present Illness: HPI Narrative: 25-year-old male presents to the emergency room with suicidal ideation and thoughts. States he would like to commit suicide but does not have a specific plan he states he is too scared to harm himself a lot of it stems from some relationship problems related to his drugs from about 6 months ago. He also smokes marijuana he wants to get a medical card but has not been able to yet. He thinks that the medical marijuana will help keep him from doing math. He was hospitalized a month ago for suicidal ideation. He is currently on Prozac. MD complaint: suicidal ideation and feels depressed Onset (ago): week(s) Duration: constant History of same: Yes Relieving factors: none Exacerbating factors: drug use. He was admitted to the neuropsychiatric unit for definitive treatment of those issues. He presents today reporting that after the discharge last time he went to reconnect with his and his daughter's mother would not get out of the way but not letting him present get an he has not seen his daughter for a long time and that really messes with him. He is now taking his medication which had been effective and got back involved with his addiction. He denies substantive changes since we saw him in August and is hopeful to get back on track with his mental health and recovery treatment. We discussed the risks benefits and alternatives of restarting his Prozac and he understood and agreed to proceed as is documented in this note. An excerpt from his last hospitalization is included below given there were limited changes. Per his 09/04/2020 [facility] inpatient psychiatric evaluation: History of Present Illness Jan Drummond is a 24 year old male who presented to the emergency department with the following report: Chief Complaint: Psychiatric Symptoms Stated Complaint: SI Time Seen by Provider: 09/03/20 13:05 History of Present Illness: HPI Narrative: 24-year-old male presents with suicidal ideation. Patient reports that he has had suicidal thoughts for quite a while. Patient reports being on for least a year. Patient admits that he gets worse with substance abuse. Patient states that sometimes he feels like he wants to hurt people. Patient mom reports that he get violent. Patient reports that he needs help and does not want to elaborate because it will make him cry. Patient feels that he needs a be hospitalized to help with his current condition. Associated symptoms: Reports depression, homicidal ideation and suicidal ideation. He was admitted to the neuropsychiatric unit for definitive treatment of those issues. He presents today reporting he is never had psychiatric treatment, he is never been hospitalized or had any other psychiatric medications. He denies any suicide attempts but does endorse suicidal thoughts that have been problematic recently endorses having depression feelings of helplessness and hopelessness and worthlessness. He reports smoking cigarettes were a pack will last him 2 to 3 days. Reports being alcohol occasionally, marijuana is smoked daily, he denies using cocaine but reports opiate use occasionally and methamphetamine use sometimes daily. When asked about rehab he reports not yet. He denies ever having a DUI. He was very evasive in general with answers to the questions often being idle no partially because he seemed to be in withdrawal or intoxicated and partially because he was trying to stay awake. He does report it is possible that some of his depression results from a break-up from earlier this year. We discussed the risks, benefits and alternatives of a trial of Prozac and he understood and agreed proceed as documented in his note. Psychiatric history: As above. Substance abuse history: As above. Family history: He denies significant history about family mental health or addiction issues because he was adopted but then he later identified that he was adopted within his family. He reports addiction issues on both sides of the family and he denies knowing about any suicide attempts or completions. Developmental history: He denies knowing about any issues with his mom's or and delivery with him. He did learn to walk and talk and met developmental milestones on time. He reports that he did struggle with speech and possible learning issues as far as language being slowed. Psychosocial history: He reports that his mom and dad were together when he was born but that he was adopted by his dad's brother and mom's sister reporting that he came from a situation where her brother is sisters or something like that. He reports he was adopted very young and he believes he has 1 full sibling and possibly some half siblings somewhere but he is unsure he reports that his childhood was fine and he denies any emotional physical or sexual abuse he denies he was ever taken out of the home but he did report that he was a challenging child and got in trouble a lot. He mated to the 12 grade but ultimately got his HSE. He is a heterosexual and he is not sure how long his longest relationship was maybe a year. He is 1 time and once, he is unsure if he has any children he reports he has 1 child who will be 1 years old on his birthday but he is to get a paternity test, is never been in the . He reports his longest employment was 11 months at a place that makes [employer]. He currently lives in a camper at home by his mother. Legal history: He reports that he was in juvenile residential for 7 months we was 15 and has been in adult halfway a lot. Longest time adult halfway was 1-1/2 years. Medical history: Denied. Please see ED note for full details. Hospital Course Hospital Course Jan presented to the emergency department with depression and suicidality and off of his medication. He was admitted to the neuropsychiatric unit for definitive treatment of those issues. On the unit he quickly acclimated to the individual, group and milieu therapies provided. Restart Prozac 20 mg p.o. every morning with a positive effect. He was able to contract for safety prior to discharge. During the hospitalization, patient had routine laboratory studies which were within normal limits except for few outliers. Additionally there was a general medical evaluation which was also within normal limits and revealed no new acute processes. Discharge Summary: At the time of discharge, he denied psychosis or lethality. Mood and anxiety were well managed. Patient endorsed a plan to avoid all drugs of abuse and follow-up with the aftercare recommendations of the treatment team. Patient was evaluated and deemed to be absent credible lethality, and had achieved the maximum benefit from an inpatient hospitalization, so was discharged. Involuntary Hold Information 96 Hour Hold: 96 Hour Involuntary Admission: No Mental Status Exam MSE Comments: This is a slender white male in hospital scrubs with adequate grooming and eye contact. No abnormal movements except for mild psychomotor retardation. Cooperative with exam in no acute distress. Speech is normal rate and volume. Mood described as better, affect congruent. Thought process organized. Thought content: Patient denied suicidal or homicidal ideation, there are no delusions reported or noted, he denied any auditory or visual hallucinations. Attention and concentration were intact and memory was reliable, but none were formally tested. He is alert and oriented x3. Insight and judgment are limited and impulse control is limited but improving. Discharge Data Vitals: Last Vital Signs Temp 97.8 F 10/15/20 06:00 Pulse 65 10/15/20 06:00 Resp 18 10/15/20 06:00 BP 106/70 10/15/20 06:00 Pulse Ox 99 10/15/20 06:00 Discharge Plan Discharge Patient Disposition: Home Condition: Stable Prescriptions: Continued fluoxetine 20 mg Capsule 20 mg PO DAILY 30 Days Qty: 30 RF: 1 Discharge Orders: Discharge Order (Routine); Ordered 10/15/20 Ordered By: Rick Gottlieb Referrals: [facility] [Outside] (Walk in for your initial assessment. Tuesday-Tuesday 7:30-3:00pm.) [facility] [Outside] (For rehab, please complete assessment and turn it in to [facility] in person. Tuesday-Tuesday 8:00am-5:00pm) Discharge Diet: Regular Discharge Activity: Resume usual activity Patient Instructions: Depression (DC), Cannabis Abuse (DC), Methamphetamine Abuse (DC), Opioid Safety Discharge Attestations NPU Time Spent in Discharge Care*: less than 30 min Specific Discharge Activities: Specific discharge activities: educating patient, discussing with foster care case manager/social workers/dc planners, documenting/other paperwork and evaluating patient/reviewing data Coding Level of Care Code Acute Chg FW DC note Diagnoses Opiate abuse, episodic F11.10 Methamphetamine abuse F15.10 Cannabis abuse F12.10 Depression F32.9 Depression Type: unspecified
[2020-10-15 15:28] VITALS: BP 106/70; PULSE 65; RESP 18; TEMP 36.6; O2SAT 99
[2020-10-15] MEDS: fluoxetine 20 mg Capsule PO (15:46)
--- NOTE | 2020-10-17 09:36 | PC.RESP ---
SMOKING CESSATION INFORMATION SENT TO PATIENT.
== END 2020-10-15 17:36 | disposition home or self-care (01) | DRG 881 ==
LOC: ER 13:54 → NP 15:09
PROVIDERS: Admitting Provider Psychiatry & Neurology Psychiatry; Emergency Provider Family Medicine; Visit Provider Psychiatry & Neurology Psychiatry
DX: F32.9 Major depressive disorder, single episode, unspecified (principal); R45.851 Suicidal ideations; F12.10 Cannabis abuse, uncomplicated; F15.10 Other stimulant abuse, uncomplicated; F11.10 Opioid abuse, uncomplicated; F17.210 Nicotine dependence, cigarettes, uncomplicated
CPT/HCPCS: 80053; 80306; 80307; 81003; 85025; 99285